=== PATIENT | male | born 1975 | race Caucasian/White ===

== ENCOUNTER 2024-06-01 14:22 | Emergency (ER) | payer OTHER ==
[2024-06-01] MEDS: Tetracaine HCl/PF 0.5% 4 ML Bottle EYELF ONE (15:00)
[2024-06-01] MEDS: Ciprofloxacin 0.3% Ophth Soln 5 ML Bottle EYELF SCH (15:17)
[2024-06-01] MEDS ORDERED: Sodium Chloride 0.9% 250 ML SCH (15:45)
[2024-06-01] MEDS: Erythromycin Base 0.5% Ophth Oint 3.5 GM Tube EYELF ONE (16:53)
== END 2024-06-01 17:15 | disposition home or self-care (01) ==
LOC: KA.ED 14:22
DX: T15.02XA Foreign body in cornea, left eye, initial encounter (principal); Z88.8 Allergy status to other drugs, medicaments and biological substances; Z88.5 Allergy status to narcotic agent; W45.8XXA Other foreign body or object entering through skin, initial encounter
CPT/HCPCS: 65220; 99283; A9270; Q3014; J3490